=== PATIENT | female | born 1950 | race Caucasian/White ===

== ENCOUNTER 2019-05-13 20:57 | Inpatient (IN) | payer OTHER ==
--- NOTE | 2019-05-13 21:07 | PDOC ---
Rapid Medical Evaluation Time Seen by Provider: 05/13/19 21:05 Medical Evaluation: 05/13/19 21:06 HPI:Abdominal pain x 5 day PE: No gross deficits ORDERS: Belly labs and UA and Cx Discharge Disposition - Diagnosis Abdominal pain - Referrals - Patient Instructions - Post Discharge Activity
[2019-05-14 01:23] LABS: BASO % 0.4 % (0-2.0); EOS % 1.3 % (0-4.5); HEMATOCRIT 37.8 % (32.4-45.2); HEMOGLOBIN 12.9 GM/dL (10.7-15.3); LYMPH % 29.5 % (8-40); MCH 33.1 pg (25.7-33.7); MEAN CELL VOLUME 97.2 fl (80-96); MEAN PLT VOLUME 11.5 fl (7.5-11.1); MONO % 8.9 % (3.8-10.2); NEUT % 59.9 % (42.8-82.8); PLATELET COUNT 161 K/MM3 (134-434); RBC 3.89 M/mm3 (3.60-5.2); WHITE BLOOD COUNT 5.7 K/mm3 (4.0-10.0)
[2019-05-14 02:06] LABS: BILIRUBIN,TOTAL 4.9 mg/dL (0.2-1); BLOOD UREA NITROGEN 6.9 mg/dL (7-18); CALCIUM 8.5 mg/dL (8.5-10.1); CREATININE 0.5 mg/dL (0.55-1.3); POTASSIUM 3.8 mmol/L (3.5-5.1); TOT PROT 6.4 g/dl (6.4-8.2)
[2019-05-14] MEDS ORDERED: ONDANSETRON 4 MG/2 ML VIAL IVPB ONE (02:06)
[2019-05-14] MEDS ORDERED: FAMOTIDINE 20 MG/50 ML IVPB 20 MG/50 ML MG IVPB ONE (02:06)
[2019-05-14] MEDS ORDERED: LACTATED RINGERS SOLUTION 1000 ML INFUS.BAG IV ONE (02:06)
[2019-05-14] MEDS ORDERED: ONDANSETRON 4 MG/2 ML VIAL ONE (02:14)
--- NOTE | 2019-05-14 02:29 | PDOC ---
History of Present Illness - General Chief Complaint: Pain Stated Complaint: ABD PAIN Time Seen by Provider: 05/13/19 21:05 History Source: Patient, Friend (Friend at bedside for interview.), Social Media Community Manager Used ([employer] # [id number]) Exam Limitations: Language Barrier (Haitian speaking only) - History of Present Illness Initial Comments: HPI: 68 y/o female presenting to [facility] ER complaining of two weeks of burning upper abdominal pain and nausea with poor PO intake. Pt is concerned the symptoms are because of a kidney stone, which was found on an abd U/S in [facility] in December. Pt then endorsed lower abdominal pain with radiation to R and L lower back. Endorsed decreased urination with hematuria and/or dark urine. Denies vomiting or diarrhea. Of note, the pt was diagnosed with hepatitis A in December 2018 at [facility]. Denies persistent nausea/vomiting or abd since that time. Returned home to [facility] because she thought she was going to . This was when the U/S was obtained. She returned from [facility] also in December. Medical Hx: - S/p removal of ovaries but unable to reason or further details - Denies taking prescription medications - Takes Vit. B Complex daily. Review of Systems: In addition to that documented in the HPI above, the additional ROS was obtained : Constitutional: Denies fevers or chills Head: Denies vision changes ENMT: Denies sore throat CV: Denies chest pain Resp: Denies SOB GI: Denies vomiting or diarrhea : Per HPI. Denies dysuria. MSK: Denies recent trauma Skin: Denies new rashes Neuro: Denies new numbness or tingling or weakness Endocrine: Denies polyuria Heme: Denies bleeding or bruising Physical Examination: Constitutional: Well-developed, well-nourished elderly adult female in no acute distress or obvious discomfort. Obese body habitus. Found semi-fowlers on hospital bed. Alert and oriented x4. Speech was non-labored, non-pressured. Head: Normocephalic. No obvious external signs of trauma. Eyes: Sclera mildly icteric. Cardiovascular / Chest: Regular rate and regular rhythm. No murmur, rubs, clicks , or gallops. Peripheral pulses: radial pulses full. No pretibial edema. Respiratory: Breathing unlabored. Equal chest rise and fall. Clear to auscultation bilaterally. No stridor, no wheezing, no rhonchi. Gastrointestinal: abdomen is diffusely tender with grimace but no pause in talking, rebound, or guarding. Globally, abd is soft and non-distended.No pulsatile masses. No overlying skin lesions or obvious signs of trauma. Neuro: Alert and oriented. Moving all four extremities spontaneously. Skin: Warm, dry, and intact. : No R or L CVA tenderness. Psych: Affect: appropriate. Mood: normal. MDM: *Reviewed vital signs, nursing notes, and prior visit documentation (if available). 68 y/o female presenting with sharp and diffuse abdominal pain and nausea x2 weeks. Afebrile. Vitals unremarkable for hypotension or tachycardia. Physical exam as described above. CBC unremarkable for leukocytosis. CMP revealed elevated LFTs. Ordered non-con CTAP to eval for possible nephrolithiasis versus cholecystitis. Ordered Shay and Famotidine for symptom relief. CT scan concerning for possible cholecystitis. Unable to obtain U/S at this hour. Ordered placed for morning scan. Pt made NPO. Ordered Unasyn for abx coverage and LR maintenance fluids. 04:51 In person discussion with [facility] attending Dr. Meehan. Verbally appraised of the pts HPI, ED course, and current plan of management. Will admit pt to med/surg. Requested consult to be placed for Dr. Sheehan for surgical evaluation. Alo Harrison M.D., PGY2 Emergency Medicine Resident Past History - Past Medical History Allergies/Adverse Reactions: Allergies Allergy/AdvReac Type Severity Reaction Status Date / Time No Known Allergies Allergy Verified 05/14/19 03:17 Home Medications: Ambulatory Orders Vitamin B Complex 1 each PO DAILY 05/14/19 COPD: No CHF: No GI Disorders: Yes (gallbladder dx, Hepatitis A December 2018) - Suicide/Smoking/Psychosocial Hx Smoking History: Never smoked *Physical Exam - Vital Signs Last Vital Signs Temp Pulse Resp BP Pulse Ox 98.3 F 66 20 140/67 99 05/13/19 21:06 05/13/19 21:06 05/13/19 21:06 05/13/19 21:06 05/13/19 21:06 ED Treatment Course - LABORATORY CBC & Chemistry Diagram: 05/14/19 00:51 05/14/19 00:51 - ADDITIONAL ORDERS Additional order review: Laboratory Results 05/14/19 05/14/19 00:51 00:51 Sodium 140 Potassium 3.8 Chloride 105 Carbon Dioxide 28 Anion Gap 7 L BUN 6.9 L Creatinine 0.5 L Est GFR (CKD-EPI)AfAm 114.45 Est GFR (CKD-EPI)NonAf 98.75 Random Glucose 71 L Calcium 8.5 Total Bilirubin 4.9 H AST 143 H ALT 112 H Alkaline Phosphatase 262 H Total Protein 6.4 Albumin 3.0 L Lipase 90 05/14/19 00:51 RBC 3.89 MCV 97.2 H MCHC 34.0 RDW 14.0 MPV 11.5 H Neutrophils % 59.9 Lymphocytes % 29.5 Monocytes % 8.9 Eosinophils % 1.3 Basophils % 0.4 - RADIOLOGY Radiology Studies Ordered: Category Date Time Status ABDOMEN & PELVIS CT W/O CONTR [CT] Stat CT Scan 05/14/19 02:27 Ordered Radiograph Interpretation: CTAP w/o contrast: THIS IS A PRELIMINARY REPORT FROM [facility]AGING [facility] AUTHORIZER DATE OF SERVICE: 2019-05-14 02:39:33 IMAGES: [id number] EXAM: ABDOMEN \T\ PELVIS CT W/O CONTR HISTORY: Diffuse abdominal pain with elevated LFTs. COMPARISON: None. FINDINGS: Lung bases are clear. The visualized cardiac chambers are normal size and configuration. Gallbladder is distended and may be mildly inflamed and there is mild biliary duct dilation. Cholecystitis is suspected which can be confirmed with ultrasound. Normal unenhanced pancreas, spleen, adrenal glands and kidneys. The stomach and abdominal small and large bowel are normal. There is no aortic aneurysm. There is no significant retroperitoneal lymphadenopathy. The pelvic small and large bowel are normal. The appendix is normal. The uterus and adnexal structures are normal. Urinary bladder is unremarkable. There is no pelvic free fluid. No discrete pelvic lymphadenopathy is identified. IMPRESSION: Suspected cholecystitis of knowledge of biliary duct dilation which may be confirmed with ultrasound as clinically indicated. One or more of the following dose reduction techniques were used: automated exposure control, adjustment of the mA and/or kV according to patient size, use of iterative reconstructive technique. THIS DOCUMENT HAS BEEN ELECTRONICALLY SIGNED David Mahoney MD 05/14/2019 03:26 EST *DC/Admit/Observation/Transfer Diagnosis at time of Disposition: Cholecystitis Abdominal pain Qualifiers: Abdominal location: generalized Qualified Code(s): R10.84 - Generalized abdominal pain - Discharge Dispostion Condition at time of disposition: Stable Decision to Admit order: Yes - Referrals - Patient Instructions - Post Discharge Activity
[2019-05-14 03:07] LABS: EPI CELLS 0.3 /HPF (0-5/HPF); HYALINE CASTS 1 /lpf (0-8); PH,URINE 6.5 (5.0-8.0); URINE APPEARANCE Error; URINE BACTERIA 1.4 /hpf (NEGATIVE); URINE BILIRUBIN 2+ (NEGATIVE); URINE COLOR DK YELLOW; URINE GLUCOSE (UA) NEGATIVE (NEGATIVE); URINE KETONE 1+ (NEGATIVE); URINE LEUK ESTERASE TRACE (NEGATIVE); URINE NITRITE NEGATIVE (NEGATIVE); URINE PROTEIN NEGATIVE (NEGATIVE); URINE RBC 1 /hpf (0-4); URINE WBC 1 /hpf (0-5)
[2019-05-14] MEDS ORDERED: AMPICILLIN NA/SULBACTAM NA 3 GM in SODIUM CHLORIDE 100 ML IVPB ONE (04:33)
[2019-05-14] MEDS ORDERED: LACTATED RINGERS SOLUTION 1,000 ML/1,000 ML INFUS.BAG IV SCH ×2 (04:45→19:30)
--- NOTE | 2019-05-14 04:57 | PDOC ---
Attending Attestation - Resident Resident Name: Alo Harrison - ED Attending Attestation I have performed the following: I have examined & evaluated the patient, The case was reviewed & discussed with the resident, I agree w/resident's findings & plan - HPI HPI: 05/14/19 04:55 68-year-old female with upper abdominal pain. Patient has history of hepatitis A and possibly gallbladder disease. - Physicial Exam PE: 05/14/19 04:56 agree with resident exam - Medical Decision Making 05/14/19 04:56 68-year-old female with upper abdominal pain CT scan findings consistent with acute cholecystitis IV antibiotic, Unasyn administered in the emergency department Patient to be a to medical service with surgical consult
[2019-05-14] MEDS ORDERED: ONDANSETRON 4 MG/2 ML VIAL IVPUSH PRN ×2 (05:27→19:10)
[2019-05-14] MEDS ORDERED: LACTATED RINGERS SOLUTION 1,000 ML IV SCH ×2 (05:30→19:15)
--- NOTE | 2019-05-14 05:45 | HP ---
CHIEF COMPLAINT: RUQ pain PCP: [address] [place] [address] physician HISTORY OF PRESENT ILLNESS: Patient is a 68 y/o female with no past medical history who presents for RUQ pain. Two weeks ago patient was in [facility] visiting when she had an "Echo" done which showed a stone in her gallbladder. Since then she has had recurrent pain. She states today the pain started radiating to her back and that is when she decided to come into the hospital. She reports she hasn't been able to eat because of the pain and can only drink water. She has not tried to take any medication. She reports not having this pain in the past. She has not noted having pain with eating greasy or fatty food in the past. Patient reports she was told that she had Hepatitis A and she had an infection in her liver. She only takes complex B vitamins and no other medications. Patient has nausea. Denies fever, chills, diarrhea, chest pain, shortness of breath and headaches. Loading Unit Tool Setter [id number] used during interview. ER course was notable for: (1)CT (2)Unasyn (3) LR Recent Travel: [facility] 2 weeks ago PAST MEDICAL HISTORY: none PAST SURGICAL HISTORY: removal of cyst on ovary 45 years ago Social History: Smoking: denies Alcohol: denies Drugs: denies Family History: Father had high blood pressure Allergies No Known Allergies Allergy (Verified 05/14/19 03:17) HOME MEDICATIONS: Home Medications Medication Instructions Recorded Vitamin B Complex 1 each PO DAILY 05/14/19 REVIEW OF SYSTEMS CONSTITUTIONAL: loss of appetite Absent: fever, chills, diaphoresis, generalized weakness, malaise, , weight change HEENT: Absent: rhinorrhea, nasal congestion, throat pain, throat swelling, difficulty swallowing, mouth swelling, ear pain, eye pain, visual changes CARDIOVASCULAR: Absent: chest pain, syncope, palpitations, irregular heart rate, lightheadedness , peripheral edema RESPIRATORY: Absent: cough, shortness of breath, dyspnea with exertion, orthopnea, wheezing, stridor, hemoptysis GASTROINTESTINAL:abdominal pain Absent: , abdominal distension, nausea, vomiting, diarrhea, constipation, melena , hematochezia GENITOURINARY: Absent: dysuria, frequency, urgency, hesitancy, hematuria, flank pain, genital pain MUSCULOSKELETAL: Absent: myalgia, arthralgia, joint swelling, back pain, neck pain SKIN: Absent: rash, itching, pallor HEMATOLOGIC/IMMUNOLOGIC: Absent: easy bleeding, easy bruising, lymphadenopathy, frequent infections ENDOCRINE: Absent: unexplained weight gain, unexplained weight loss, heat intolerance, cold intolerance NEUROLOGIC: Absent: headache, focal weakness or paresthesias, dizziness, unsteady gait, seizure, mental status changes, bladder or bowel incontinence PSYCHIATRIC: Absent: anxiety, depression, suicidal or homicidal ideation, hallucinations. PHYSICAL EXAMINATION Vital Signs - 24 hr 05/13/19 05/14/19 21:06 05:26 Temperature 98.3 F Pulse Rate 66 Respiratory 20 Rate Blood Pressure 140/67 O2 Sat by Pulse 99 99 Oximetry (%) GENERAL: Awake, alert, and fully oriented, in no acute distress. HEAD: Normal with no signs of trauma. EYES: Pupils equal, round and reactive to light, extraocular movements intact, EARS, NOSE, THROAT: Moist mucous membranes. LUNGS: Breath sounds equal, clear to auscultation bilaterally. No wheezes, and no crackles. No accessory muscle use. HEART: Regular rate and rhythm, normal S1 and S2 without murmur, rub or gallop. ABDOMEN: soft, non distended, negative rosvings, negative McBurney's point, normoactive bowel sounds MUSCULOSKELETAL: Normal range of motion at all joints. LOWER EXTREMITIES: 2+ pulses, warm, well-perfused. No calf tenderness. No peripheral edema. SKIN: Warm, dry, normal turgor, no rashes or lesions noted, normal capillary refill. CBC/ CMP WBC 5.7 K/mm3 (4.0-10.0) 05/14/19 00:51 RBC 3.89 M/mm3 (3.60-5.2) 05/14/19 00:51 Hgb 12.9 GM/dL (10.7-15.3) 05/14/19 00:51 Hct 37.8 % (32.4-45.2) 05/14/19 00:51 MCV 97.2 fl (80-96) H 05/14/19 00:51 MCH 33.1 pg (25.7-33.7) 05/14/19 00:51 MCHC 34.0 g/dl (32.0-36.0) 05/14/19 00:51 RDW 14.0 % (11.6-15.6) 05/14/19 00:51 Plt Count 161 K/MM3 (134-434) 05/14/19 00:51 MPV 11.5 fl (7.5-11.1) H 05/14/19 00:51 Absolute Neuts (auto) 3.4 K/mm3 (1.5-8.0) 05/14/19 00:51 Neutrophils % 59.9 % (42.8-82.8) 05/14/19 00:51 Lymphocytes % 29.5 % (8-40) 05/14/19 00:51 Monocytes % 8.9 % (3.8-10.2) 05/14/19 00:51 Eosinophils % 1.3 % (0-4.5) 05/14/19 00:51 Basophils % 0.4 % (0-2.0) 05/14/19 00:51 Nucleated RBC % 0 % (0-0) 05/14/19 00:51 Sodium 140 mmol/L (136-145) 05/14/19 00:51 Potassium 3.8 mmol/L (3.5-5.1) 05/14/19 00:51 Chloride 105 mmol/L (98-107) 05/14/19 00:51 Carbon Dioxide 28 mmol/L (21-32) 05/14/19 00:51 Anion Gap 7 MMOL/L (8-16) L 05/14/19 00:51 BUN 6.9 mg/dL (7-18) L 05/14/19 00:51 Creatinine 0.5 mg/dL (0.55-1.3) L 05/14/19 00:51 Est GFR (CKD-EPI)AfAm 114.45 05/14/19 00:51 Est GFR (CKD-EPI)NonAf 98.75 05/14/19 00:51 Random Glucose 71 mg/dL (74-106) L 05/14/19 00:51 Calcium 8.5 mg/dL (8.5-10.1) 05/14/19 00:51 Total Bilirubin 4.9 mg/dL (0.2-1) H 05/14/19 00:51 AST 143 U/L (15-37) H 05/14/19 00:51 ALT 112 U/L (13-61) H 05/14/19 00:51 Alkaline Phosphatase 262 U/L (45-117) H 05/14/19 00:51 Creatine Kinase 189 U/L (26-192) 05/14/19 01:15 Creatine Kinase Index 1.4 % (0.0-5.0) 05/14/19 01:15 CK-MB (CK-2) 2.8 ng/mL (0.5-3.6) 05/14/19 01:15 Troponin I < 0.02 ng/ml (0.00-0.05) 05/14/19 01:15 Total Protein 6.4 g/dl (6.4-8.2) 05/14/19 00:51 Albumin 3.0 g/dl (3.4-5.0) L 05/14/19 00:51 Lipase 90 U/L (73-393) 05/14/19 00:51 Active Medications Lactated Ringer's (Lactated Ringers Solution) 1,000 ml in 1,000 mls @ 100 mls/ hr IV ASDIR CANDI Ampicillin Sodium/Sulbactam (Sodium 3 gm/ Sodium Chloride) 100 mls @ 200 mls/ hr IVPB Q6H-IV CANDI Lactated Ringer's (Lactated Ringers Solution) 1,000 mls @ 100 mls/hr IV ASDIR CANDI Ondansetron HCl (Zofran Injection) 4 mg IVPUSH Q6H PRN PRN Reason: NAUSEA EKG: sinus bradycardia, V1, V2 t wave inversions, no st changes ASSESSMENT/PLAN: Patient is a 68 y/o female with no past medical history who presents for RUQ pain. #RUQ - suspect cholecystitis - ABD CT: suspected cholecystitis of knowledge of biliary duct dilitation - f/u RUQ US - Dr Sheehan consulted - Unasyn q6h - zofran 4 mg q6h prn, QTC 406 - pain resolved with zofran and famotidine - low risk patient for surgery, NPO - UA negative for infxn, f/u UCX #transaminitis - cannot r/u in the setting of cholelithiasis - continue to monitor AST/ALT 143/112 - elevated alk phosp 262 #DVT ppx - SCD's - medication held for possible surgery FEN - NPO - LR @ 100 Dispo: monitor patient on med surg, f/u per Surgery Visit type - Emergency Visit Emergency Visit: Yes ED Registration Date: 05/14/19 Care time: The patient presented to the Emergency Department on the above date and was hospitalized for further evaluation of their emergent condition. - New Patient This patient is new to me today: Yes Date on this admission: 05/16/19 - Critical Care Critical Care patient: No ATTENDING PHYSICIAN STATEMENT I saw and evaluated the patient. I reviewed the resident's note and discussed the case with the resident. I agree with the resident's findings and plan as documented. SUBJECTIVE: OBJECTIVE: ASSESSMENT AND PLAN:
--- NOTE | 2019-05-14 07:17 | PN ---
Physical Exam: SUBJECTIVE: Patient seen and examined by the bedside, AOx3, in no acute distress. OBJECTIVE: Vital Signs Period Temp Pulse Resp BP Sys/Whitaker Pulse Ox Last 24 Hr 97.7 F-98.3 F 57-66 18-20 117-140/43-67 97-99 GENERAL: The patient is awake, alert, and fully oriented, in no acute distress. HEAD: Normal with no signs of trauma. EYES: PERRL, extraocular movements intact, sclera anicteric, conjunctiva clear. No ptosis. ENT: Ears normal, nares patent, oropharynx clear without exudates, moist mucous membranes. NECK: Trachea midline, full range of motion, supple. LUNGS: Breath sounds equal, clear to auscultation bilaterally, no wheezes, no crackles, no accessory muscle use. HEART: Regular rate and rhythm, S1, S2 without murmur, rub or gallop. ABDOMEN: Soft, diffusely tender EXTREMITIES: 2+ pulses, warm, well-perfused, no edema. NEUROLOGICAL: Cranial nerves II through XII grossly intact. Normal speech, gait not observed. PSYCH: Normal mood, normal affect. SKIN: Warm, dry, normal turgor, no rashes or lesions noted Laboratory Results - last 24 hr 05/14/19 05/14/19 05/14/19 00:51 00:51 00:51 WBC 5.7 RBC 3.89 Hgb 12.9 Hct 37.8 MCV 97.2 H MCH 33.1 MCHC 34.0 RDW 14.0 Plt Count 161 MPV 11.5 H Absolute Neuts (auto) 3.4 Neutrophils % 59.9 Lymphocytes % 29.5 Monocytes % 8.9 Eosinophils % 1.3 Basophils % 0.4 Nucleated RBC % 0 Sodium 140 Potassium 3.8 Chloride 105 Carbon Dioxide 28 Anion Gap 7 L BUN 6.9 L Creatinine 0.5 L Est GFR (CKD-EPI)AfAm 114.45 Est GFR (CKD-EPI)NonAf 98.75 Random Glucose 71 L Calcium 8.5 Total Bilirubin 4.9 H AST 143 H ALT 112 H Alkaline Phosphatase 262 H Creatine Kinase Creatine Kinase Index CK-MB (CK-2) Troponin I Total Protein 6.4 Albumin 3.0 L Lipase 90 Urine Color Urine Appearance Urine pH Ur Specific Gaylord Urine Protein Urine Glucose (UA) Urine Ketones Urine Blood Urine Nitrite Urine Bilirubin Urine Urobilinogen Ur Leukocyte Esterase Urine WBC (Auto) Urine RBC (Auto) Urine Casts (Auto) U Epithel Cells (Auto) Urine Bacteria (Auto) 05/14/19 05/14/19 01:15 02:35 WBC RBC Hgb Hct MCV MCH MCHC RDW Plt Count MPV Absolute Neuts (auto) Neutrophils % Lymphocytes % Monocytes % Eosinophils % Basophils % Nucleated RBC % Sodium Potassium Chloride Carbon Dioxide Anion Gap BUN Creatinine Est GFR (CKD-EPI)AfAm Est GFR (CKD-EPI)NonAf Random Glucose Calcium Total Bilirubin AST ALT Alkaline Phosphatase Creatine Kinase 189 Creatine Kinase Index 1.4 CK-MB (CK-2) 2.8 Troponin I < 0.02 Total Protein Albumin Lipase Urine Color Dk yellow Urine Appearance Error Urine pH 6.5 Ur Specific Gaylord 1.009 L Urine Protein Negative Urine Glucose (UA) Negative Urine Ketones 1+ H Urine Blood Negative Urine Nitrite Negative Urine Bilirubin 2+ H Urine Urobilinogen 2.0 H Ur Leukocyte Esterase Trace Urine WBC (Auto) 1 Urine RBC (Auto) 1 Urine Casts (Auto) 1 U Epithel Cells (Auto) 0.3 Urine Bacteria (Auto) 1.4 Active Medications Generic Name Dose Route Start Last Admin Trade Name Freq PRN Reason Stop Dose Admin Lactated Ringer's 1,000 ml in 1,000 mls @ 100 mls/hr 05/14/19 04:45 05/14/19 05:46 Lactated Ringers Solution IV 100 mls/hr ASDIR CANDI Administration Ampicillin Sodium/Sulbactam 100 mls @ 200 mls/hr 05/14/19 09:00 Sodium 3 gm/ Sodium Chloride IVPB Q6H-IV CANDI Lactated Ringer's 1,000 mls @ 100 mls/hr 05/14/19 05:30 05/14/19 06:49 Lactated Ringers Solution IV 100 mls/hr ASDIR CANDI Administration Ondansetron HCl 4 mg 05/14/19 05:27 Zofran Injection IVPUSH Q6H PRN NAUSEA ASSESSMENT/PLAN: Patient is a 68 yo female with no significant PMH, presented to the ER for RUQ pain for the past 2 weeks. Reportedly had an "Echo" done in [facility] 2 weeks ago which showed a stones in gallbladder. Pain started radiating to her back before she came into the ER. Associated with nausea and loss of appetite, exacerbated by eating greasy food, no vomiting, fever, chills, diarrhea, chest pain, shortness of breath and headaches. ER course: (1) CT: suspected cholecystitis (2) Unasyn (3) R/L Recent Travel: [place] 2 weeks ago PAST SURGICAL HISTORY: removal of cyst on ovary 45 years ago Social History: Family History: Father had high blood pressure #RUQ - RUQ US: Gallstone with wall thickening; mild to moderate dilation of central intrahepatic bile ducts with dilated common bileduct - ABD CT: suspected cholecystitis of knowledge of biliary duct dilitation - GI consulted, ERCP scheduled for tomorrow - Surgery (Dr Sheehan) consulted - Zosyn started - zofran and famotidine for pain - UA: Ketones 1+ Bili 2+ Urobilinogen 2.0 - Total Bili 5.5 #transaminitis - [id number]->127; [id number] ->98; [id number]->228 - continue to monitor #DVT ppx - SCD's - medication held for possible surgery #FEN - NPO - LR @ 100 #Dispo - Monitor on med surg - f/u per Surgery after ERCP Visit type - Emergency Visit Emergency Visit: Yes ED Registration Date: 05/14/19 Care time: The patient presented to the Emergency Department on the above date and was hospitalized for further evaluation of their emergent condition. - New Patient This patient is new to me today: No - Critical Care Critical Care patient: No - Discharge Referral Referred to [facility] Med [facility].C[facility] No ATTENDING PHYSICIAN STATEMENT I saw and evaluated the patient. I reviewed the resident's note and discussed the case with the resident. I agree with the resident's findings and plan as documented. SUBJECTIVE: OBJECTIVE: ASSESSMENT AND PLAN:
[2019-05-14 08:04] LABS: BASO % 0.6 % (0-2.0); EOS % 1.3 % (0-4.5); HEMATOCRIT 34.9 % (32.4-45.2); LYMPH % 25.5 % (8-40); MCHC 34.2 g/dl (32.0-36.0); MEAN CELL VOLUME 96.4 fl (80-96); MEAN PLT VOLUME 10.6 fl (7.5-11.1); MONO % 8.3 % (3.8-10.2); NEUT % 64.3 % (42.8-82.8); PLATELET COUNT 142 K/MM3 (134-434); RBC 3.62 M/mm3 (3.60-5.2); RDW 13.6 % (11.6-15.6); WHITE BLOOD COUNT 4.3 K/mm3 (4.0-10.0)
--- NOTE | 2019-05-14 08:17 | PN ---
Teaching Attending Note Name of Resident: Elfego Cruz ATTENDING PHYSICIAN STATEMENT I saw and evaluated the patient. I reviewed the resident's note and discussed the case with the resident. I agree with the resident's findings and plan as documented. SUBJECTIVE: C/o RT UQ pain OBJECTIVE: Vital Signs Temperature 97.7 F 05/14/19 07:00 Pulse Rate 57 L 05/14/19 07:00 Respiratory Rate 18 05/14/19 07:00 Blood Pressure 117/43 L 05/14/19 07:00 O2 Sat by Pulse Oximetry (%) 97 05/14/19 07:00 Elderly man no acute distress HEENT: mm moist, no anemia, PERRLA EOMI NECK: No JVd No Bruit CHEST: CTA B/L CVS: S1S2 R ABD: No distention Rt UQ OPain EXT: no edema feet, no calf tenderness, Puilses + BUSINESS INTELLIGENCE REPORTING ANALYST: AOX3 non focal CBC,CMP WBC 4.3 K/mm3 (4.0-10.0) 05/14/19 07:43 RBC 3.62 M/mm3 (3.60-5.2) 05/14/19 07:43 Hgb 12.0 GM/dL (10.7-15.3) 05/14/19 07:43 Hct 34.9 % (32.4-45.2) 05/14/19 07:43 MCV 96.4 fl (80-96) H 05/14/19 07:43 MCH 33.0 pg (25.7-33.7) 05/14/19 07:43 MCHC 34.2 g/dl (32.0-36.0) 05/14/19 07:43 RDW 13.6 % (11.6-15.6) 05/14/19 07:43 Plt Count 142 K/MM3 (134-434) 05/14/19 07:43 MPV 10.6 fl (7.5-11.1) 05/14/19 07:43 Absolute Neuts (auto) 2.8 K/mm3 (1.5-8.0) 05/14/19 07:43 Neutrophils % 64.3 % (42.8-82.8) 05/14/19 07:43 Lymphocytes % 25.5 % (8-40) 05/14/19 07:43 Monocytes % 8.3 % (3.8-10.2) 05/14/19 07:43 Eosinophils % 1.3 % (0-4.5) 05/14/19 07:43 Basophils % 0.6 % (0-2.0) 05/14/19 07:43 Nucleated RBC % 0 % (0-0) 05/14/19 07:43 ESR 40 mm/hr (0-30) H 05/14/19 13:18 Sodium 143 mmol/L (136-145) 05/14/19 07:43 Potassium 3.4 mmol/L (3.5-5.1) L 05/14/19 07:43 Chloride 110 mmol/L (98-107) H 05/14/19 07:43 Carbon Dioxide 24 mmol/L (21-32) 05/14/19 07:43 Anion Gap 9 MMOL/L (8-16) 05/14/19 07:43 BUN 3.4 mg/dL (7-18) L 05/14/19 07:43 Creatinine 0.5 mg/dL (0.55-1.3) L 05/14/19 07:43 Est GFR (CKD-EPI)AfAm 114.45 05/14/19 07:43 Est GFR (CKD-EPI)NonAf 98.75 05/14/19 07:43 Random Glucose 71 mg/dL (74-106) L 05/14/19 07:43 Calcium 7.9 mg/dL (8.5-10.1) L 05/14/19 07:43 Iron 93 ug/dL (50-175) 05/14/19 13:18 TIBC 380 ug/dL (250-450) 05/14/19 13:18 Iron Saturation 24 % (17.5-39) 05/14/19 13:18 Unsaturated IBC 287 ug/dL (200-275) H 05/14/19 13:18 Total Bilirubin 5.5 mg/dL (0.2-1) H 05/14/19 07:43 Direct Bilirubin 5.5 mg/dL (0.0-0.2) H 05/14/19 13:18 AST 127 U/L (15-37) H 05/14/19 07:43 ALT 98 U/L (13-61) H 05/14/19 07:43 Alkaline Phosphatase 228 U/L (45-117) H 05/14/19 07:43 LD Total 248 U/L (84-246) H 05/14/19 13:18 Creatine Kinase 189 U/L (26-192) 05/14/19 01:15 Creatine Kinase Index 1.4 % (0.0-5.0) 05/14/19 01:15 CK-MB (CK-2) 2.8 ng/mL (0.5-3.6) 05/14/19 01:15 Troponin I < 0.02 ng/ml (0.00-0.05) 05/14/19 01:15 C-Reactive Protein 2.0 MG/DL (0.00-0.3) H 05/14/19 13:18 Total Protein 5.5 g/dl (6.4-8.2) L 05/14/19 07:43 Albumin 2.4 g/dl (3.4-5.0) L 05/14/19 07:43 Lipase 90 U/L (73-393) 05/14/19 00:51 RT UQ Ultrasound: CBD 10 mm with echogenic area, Distended thickened wall GB CT abd; Thickened GB Active Medications Lactated Ringer's (Lactated Ringers Solution) 1,000 ml in 1,000 mls @ 100 mls/ hr IV ASDIR CANDI Last Admin: 05/14/19 05:46 Dose: 100 mls/hr Ampicillin Sodium/Sulbactam (Sodium 3 gm/ Sodium Chloride) 100 mls @ 200 mls/ hr IVPB Q6H-IV CANDI Lactated Ringer's (Lactated Ringers Solution) 1,000 mls @ 100 mls/hr IV ASDIR CANDI Last Admin: 05/14/19 06:49 Dose: 100 mls/hr Ondansetron HCl (Zofran Injection) 4 mg IVPUSH Q6H PRN PRN Reason: NAUSEA ASSESSMENT AND PLAN:68 yrs old man from came 2 wks ago admitted with Rt UQ pain w Problem List - Problems (1) Obstructive jaundice Assessment/Plan: Due to CBD stone acute cholycystitis schedulefor ERCP and stent placement, NPO Pain control, IV Unasyn, GI and surgery consult is appreciated Code(s): K83.1 - OBSTRUCTION OF BILE DUCT (2) Cholecystitis Assessment/Plan: NPO, IV Hydration, pain control, IV Unsyn PRN, Surgery and GI consult cont Zofran PRN Code(s): K81.9 - CHOLECYSTITIS, UNSPECIFIED
[2019-05-14 08:30] LABS: ALBUMIN 2.4 g/dl (3.4-5.0); BILIRUBIN,TOTAL 5.5 mg/dL (0.2-1); BLOOD UREA NITROGEN 3.4 mg/dL (7-18); CALCIUM 7.9 mg/dL (8.5-10.1); CREATININE 0.5 mg/dL (0.55-1.3); POTASSIUM 3.4 mmol/L (3.5-5.1); TOT PROT 5.5 g/dl (6.4-8.2)
[2019-05-14 08:31] LABS: INR 1.34 (0.83-1.09); PROTHROMBIN TIME (PATIENT) 15.8 SEC (9.7-13.0)
[2019-05-14] MEDS ORDERED: AMPICILLIN NA/SULBACTAM NA 3 GM in SODIUM CHLORIDE 100 ML IVPB SCH (09:00)
--- NOTE | 2019-05-14 09:03 | PN ---
Teaching Attending Note Name of Resident: Maida Owens ATTENDING PHYSICIAN STATEMENT I saw and evaluated the patient. I reviewed the resident's note and discussed the case with the resident. I agree with the resident's findings and plan as documented. Seen and examined; please refer to resident note for further historical information. Briefly, this is a 68 y/o female with a PMH as documented presenting with abdominal pain with potentially obstructive pattern on LFTs; US not in house and is pending along with contrasted MRCP. Prelim CT reviewed; discussed below. Will require surgical evaluation with Dr. Sheehan and GI evaluation; appreciate subspecialty input. Lipase negative. Additional history per resident note. 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 10 sys ROS done and negative aside from HPI PMH, PSH, FH, SH reviewed Home Medications Medication Instructions Recorded Vitamin B Complex 1 each PO DAILY 05/14/19 VS, labs, imaging reviewed NAD, AAO, resting in bed NC AT EOMI PERRLA, slight icterus RRR s1/2 Tender, ND, reduced bowel sounds CN2-12 wnl, no fnd EKG not located; appears to have been done. Will review scanned version and update if issues. Prelim CT abdomen/pelvis shows suspected GB inflammation with suspected ductal dilation ASSESSMENT AND PLAN: Patient presents to the ER with abdominal pain; found to have likely biliary duct dilation and GB inflammation on prelim CT. US and MRCP w/ contrast pending ; consulting GI and General Sgy. High bili could be 2/2 HAV (ie cholestatic jaundice) vs. 2/2 obstructing process; supportive care, trending liver enzymes, followup GI recs. Empiric abx, IVF, NPO, trend LFTs, control pain. Will likely require procedure. Appreciate subspecialty input in the management of this patient. 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 Checking cholesterol as this can be high in acute infection; attempt to obtain records). No evidence for steroids; if hyperbilirubinemia persists beyond the resolution of the GB process can consider cholestyramine if pruritis is an issue. Monitor for relapsing infection.) # Macrocytosis without anemia -Checking B12, folate, iron # Hypoalbuminemia -Checking prealbumin Full Code
[2019-05-14] MEDS ORDERED: DEXTROSE 5%-LACTATED RINGERS 1,000 ML IV SCH (09:30)
[2019-05-14] MEDS ORDERED: HEPARIN NA (PORCINE) 5,000 UNITS/ML 1ML VIAL SQ SCH (10:00)
[2019-05-14] MEDS ORDERED: HEPARIN NA (PORCINE) 5,000 UNITS/ML 1ML VIAL ONE (10:04)
[2019-05-14] MEDS ORDERED: PIPERACILLIN/TAZOB 3.375 GM 3.375 GM/50 ML BAG IVPB ONE (10:05)
[2019-05-14] MEDS: PIPERACILLIN/TAZOB 3.375 GM 3.375 GM in DEXTROSE 5%-WATER - 50 ML IVPB SCH ×2 (10:10→19:01)
--- NOTE | 2019-05-14 11:25 | EKG ---
Test Reason : Blood Pressure : / mmHG Vent. Rate : 058 BPM Atrial Rate : 058 BPM P-R Int : 152 ms QRS Dur : 076 ms QT Int : 414 ms P-R-T Axes : 036 -07 020 degrees QTc Int : 406 ms SINUS BRADYCARDIA POSSIBLE ANTERIOR INFARCT , AGE UNDETERMINED ABNORMAL ECG NO PREVIOUS ECGS AVAILABLE Confirmed by Jeffry Rosas MD ([id number]) on 05/14/2019 11:25:03 AM Referred By: Confirmed By:Jeffry Rosas MD
[2019-05-14 11:41] VITALS: BMI 26.5
[2019-05-14 14:21] LABS: BILIRUBIN,DIRECT 5.5 mg/dL (0.0-0.2)
--- NOTE | 2019-05-14 14:50 | PN ---
Progress Note (short form) - Note Progress Note: BRIEF GI NOTE KEEP NPO / IVF'S C/W ABX PLAN FOR ERCP TODAY - WILL F/U WITH DR. MANUEL REGARDING EXACT TIMING OF THE PROCEDURE.
--- NOTE | 2019-05-14 15:23 | PN ---
Progress Note (short form) - Note Progress Note: Patient already seen by Dr. Day. consulted dictated. Case d/w Dr. Brady and given LFT abnormality, abnormal imaging (gallstones, dilated biliary tract) , plan for ERCP today. Discussed the plan with Ms. Gutierres via job lithographer [id number]. Discussed potential risks of the procedure like but not limited to bleeding, perforation requiring surgery to repair, infection, sedation medication effects all of which could be potentially life threatening. She has agreed to the procedure. Consent obtained, wittnessed by Ms Friedman' s nurse Maida.
--- NOTE | 2019-05-14 15:28 | CONSULT ---
- Consultation REQUESTING PROVIDER: CONSULT REQUEST: We have been asked to surgically evaluate this patient for cholecystitis PCP:Kevyn Alvarado MD HISTORY OF PRESENT ILLNESS: 68yo F presented to the ED with complaints of RUQ pain and n/v. Pt states that she has been having abd pain for the past 2 weeks. It sounds like she had an Ultrasound in [facility] and was told she had gallstones while she was there. Pt states that the pain and n/v has now subsided and that she feels much better, she states that she really hasn't had any appetite and is afraid to eat as the pain will come back. PMHx: Denies Home Medications Medication Instructions Recorded Meloxicam 1 tab PO DAILY 05/14/19 Omeprazole 20 mg PO DAILY 05/14/19 Vitamin B Complex 1 each PO DAILY 05/14/19 Allergies Allergy/AdvReac Type Severity Reaction Status Date / Time No Known Allergies Allergy Verified 05/14/19 03:17 PHYSICAL EXAM: GENERAL: Awake, alert, and fully oriented, in no acute distress. HEAD: Normal with no signs of trauma. EYES: PERRL, sclera anicteric, conjunctiva clear. LUNGS: breathing comfortably, No accessory muscle use. ABDOMEN: Soft, nontender, not distended, no guarding, no rebound, no masses. No organomegaly. LOWER EXTREMITIES: No peripheral edema. NEUROLOGICAL: Normal speech, gait not observed. PSYCH: Cooperative. Good eye contact. Appropriate mood and affect. SKIN: Warm, dry, normal turgor, no rashes or lesions noted. Vital Signs Temperature 98.4 F 05/14/19 11:18 Pulse Rate 50 L 05/14/19 11:18 Respiratory Rate 18 05/14/19 11:18 Blood Pressure 141/73 05/14/19 11:18 O2 Sat by Pulse Oximetry (%) 97 05/14/19 09:00 Lab Results WBC 4.3 K/mm3 (4.0-10.0) 05/14/19 07:43 RBC 3.62 M/mm3 (3.60-5.2) 05/14/19 07:43 Hgb 12.0 GM/dL (10.7-15.3) 05/14/19 07:43 Hct 34.9 % (32.4-45.2) 05/14/19 07:43 MCV 96.4 fl (80-96) H 05/14/19 07:43 MCHC 34.2 g/dl (32.0-36.0) 05/14/19 07:43 RDW 13.6 % (11.6-15.6) 05/14/19 07:43 Plt Count 142 K/MM3 (134-434) 05/14/19 07:43 Sodium 143 mmol/L (136-145) 05/14/19 07:43 Potassium 3.4 mmol/L (3.5-5.1) L 05/14/19 07:43 Chloride 110 mmol/L (98-107) H 05/14/19 07:43 Carbon Dioxide 24 mmol/L (21-32) 05/14/19 07:43 Anion Gap 9 MMOL/L (8-16) 05/14/19 07:43 BUN 3.4 mg/dL (7-18) L 05/14/19 07:43 Creatinine 0.5 mg/dL (0.55-1.3) L 05/14/19 07:43 Random Glucose 71 mg/dL (74-106) L 05/14/19 07:43 Calcium 7.9 mg/dL (8.5-10.1) L 05/14/19 07:43 Blood Type A POSITIVE 05/14/19 13:22 Antibody Screen Negative 05/14/19 07:43 INR 1.34 (0.83-1.09) H 05/14/19 07:43 RUQ US: Gallstones with wall thickening, can not rule out acute cholecystitis. Mild to moderate dilatation of central intrahepatic biliary ducts with a CBD measuring 10mms. DX: Cholecystitis Plan: -pt seen by GI and plan for ERCP today, will follow up results from the procedure -will plan for Lap cholecystectomy on 05/16/19 -trend LFTs -npo for now -will continue to follow. Pt was seen and discussed by Dr. Sheehan who agrees with plan
--- NOTE | 2019-05-14 15:54 | CONS ---
GASTROINTESTINAL CONSULTATION DATE OF CONSULTATION: DATE OF DICTATION: 05/14/2019 HISTORY OF PRESENT ILLNESS: The patient is a 68-year-old, female with no past medical history who complains of a band-like upper abdominal pain radiating to the right side of her upper abdomen which began 2 weeks ago while she was visiting [facility]. Apparently, she had an ultrasound done there which revealed a stone. Since then, she has had multiple episodes of recurrent stone pain prompting her to come to the emergency room for further evaluation. She states that when she eats, her pain worsens. She denies any history of liver disease, jaundice, new medications or herbal supplements. She states she may have been infected with hepatitis A in the past spring, but is not clear on that. She has never had an endoscopy or a colonoscopy in the past. She denies any blood in her stool, vomiting. Does admit to intermittent nausea. No hematemesis. No weight loss. No fevers or chills. PAST MEDICAL AND SURGICAL HISTORY: As listed in the HPI. ALLERGIES: No known drug allergies SOCIAL HISTORY: Does not drink, smoke or use drugs. FAMILY HISTORY: Significant for hypertension. No history of GI or gynecological malignancy. She is unclear if anyone else in her family suffered from biliary disease. HOME MEDICATIONS: Vitamin B. REVIEW OF SYSTEMS: As per the HPI. PHYSICAL EXAMINATION: Vital Signs: Temperature 98, pulse 50, blood pressure 140/73, pulse oximetry 97% on room air. General: In no acute distress. HEENT: Anicteric sclera. Cardiovascular: S1, S2. Regular rate and rhythm. Lungs: Bilaterally clear to auscultation. Abdomen: Tender in the right upper quadrant without rebound or guarding. Extremities: No edema. LABORATORIES: White blood cell count 4, hemoglobin 12 and hematocrit 34, MCV 96, platelet count 142. INR 1.34. Sodium 143, potassium 3.4, BUN 3.4, creatinine 0.5, glucose 71. Iron studies are pending. Total bilirubin is 5.5, AST 127, ALT 98, alkaline phosphatase 228, and the direct bilirubin is pending at this time. Amylase and lipase are within normal limits. Urine: Bilirubin 2+ and 2 urobilinogen. Serologies for hepatitis A, B and C are pending at this time. She had an abdomen and pelvis CT scan which revealed mild pericholecystic edema and questionable thickening and enhancement of its wall. Ultrasound was recommended. There were no gross gallstones identified. Questionable 3-mm nodule in the right lower lobe and a 3.5-mm pleural-based nodule in the left lower lobe which are nonspecific. Everything else remains unremarkable. She also had an ultrasound which revealed gallstones with wall thickening, acute cholecystitis cannot not be ruled out. Also, [id number] dilation of the central intrahepatic ducts and dilated common bile duct up to 10 mm. Stones cannot not be excluded. IMPRESSION: Transaminitis, right upper quadrant pain, and imaging findings of dilated biliary tree, choledocholithiasis cannot be excluded at this time, and acute cholecystitis. RECOMMENDATIONS: N.p.o. IV fluids. Will start her on antibiotics, Levaquin 500 mg IV daily, and Flagyl of 500 mg IV q.8 hours. Will order an MRCP to further evaluate the biliary tree. If positive, she will need an ERCP Surgery evaluation for potential cholecystectomy. Will follow. DO JAVIER CRUZ/[id number]
[2019-05-14] MEDS ORDERED: MIDAZOLAM HCL 2 MG/2 ML SINGLE DOSE VIAL ONE (17:17)
[2019-05-14] MEDS ORDERED: PIPERACILLIN/TAZOBACTAM 3.375 GM VIAL IVPB ONE (17:48)
[2019-05-14] MEDS ORDERED: DEXTROSE 5%-WATER - 50 ML IVPB ONE (17:49)
[2019-05-14] MEDS ORDERED: PROMETHAZINE HCL 25 MG/1 ML VIAL IVPUSH PRN (19:10)
--- NOTE | 2019-05-14 19:30 | PN ---
Progress Note (short form) - Note Progress Note: GI Procedure NOte: Please see ERCP report ( scanned and in chart): ERCP attempts to cannulate the bile duct were unsuccessful even after a needle knife sphincterotomy was performed. Dr Moscoso came to assist and also could not cannulate. I discussed the case with Dr Olmedo who is on standby to come in and perform an emergent PTC should cholangitis ensue. This is unlikely as the bile duct was not breached and there are no signs of sepsis at this point. Will pursue PTC in the morning. Will then need transfer to tertiary care center for definitive ERCP and stone extraction unless the PTC is able to do so. Will continue antibiotics and give Vitamin K. She will ultimately need a cholecystectomy. Current Active Problems Abdominal pain (Acute) Cholecystitis (Acute) Obstructive jaundice (Acute) Choledocholithiasis
[2019-05-14] MEDS ORDERED: PHYTONADIONE 10 MG/1 ML AMP IVPB ONE ×2 (19:35→23:00)
[2019-05-14] MEDS ORDERED: MORPHINE SULFATE 2 MG/ML VIAL IVPUSH ONE (21:37)
[2019-05-15] MEDS ORDERED: LACTATED RINGERS SOLUTION 1,000 ML/1,000 ML INFUS.BAG IV SCH (00:30)
[2019-05-15] MEDS ORDERED: PIPERACILLIN/TAZOBACTAM 3.375 GM VIAL IVPB ONE ×2 (01:22→09:25)
[2019-05-15] MEDS ORDERED: DEXTROSE 5%-WATER - 50 ML IVPB ONE ×2 (01:22→09:25)
[2019-05-15] MEDS: PIPERACILLIN/TAZOB 3.375 GM 3.375 GM in DEXTROSE 5%-WATER - 50 ML IVPB SCH (01:27)
[2019-05-15 09:02] LABS: INR 1.17 (0.83-1.09); PROTHROMBIN TIME (PATIENT) 13.8 SEC (9.7-13.0)
[2019-05-15 09:23] LABS: ALBUMIN 2.4 g/dl (3.4-5.0); BILIRUBIN,DIRECT 4.8 mg/dL (0.0-0.2); BILIRUBIN,TOTAL 5.9 mg/dL (0.2-1); BLOOD UREA NITROGEN 3.2 mg/dL (7-18); CALCIUM 8.6 mg/dL (8.5-10.1); CREATININE 0.6 mg/dL (0.55-1.3); POTASSIUM 3.6 mmol/L (3.5-5.1); TOT PROT 5.8 g/dl (6.4-8.2)
[2019-05-15 09:30] LABS: BASO % 0.1 % (0-2.0); EOS % 0.1 % (0-4.5); HEMATOCRIT 39.9 % (32.4-45.2); HEMOGLOBIN 13.5 GM/dL (10.7-15.3); LYMPH % 14.9 % (8-40); MCH 32.9 pg (25.7-33.7); MCHC 33.9 g/dl (32.0-36.0); MEAN CELL VOLUME 97.2 fl (80-96); MEAN PLT VOLUME 11.5 fl (7.5-11.1); MONO % 5.6 % (3.8-10.2); NEUT % 79.3 % (42.8-82.8); PLATELET COUNT 171 K/MM3 (134-434); RBC 4.11 M/mm3 (3.60-5.2); RDW 13.8 % (11.6-15.6); WHITE BLOOD COUNT 6.8 K/mm3 (4.0-10.0)
[2019-05-15] MEDS ORDERED: PIPERACILLIN/TAZOB 3.375 GM 3.375 GM in DEXTROSE 5%-WATER - 50 ML IVPB SCH (10:00)
--- NOTE | 2019-05-15 10:50 | PN.GI ---
GI Progress Note Subjective: Pt seen/examined at bedside, syriac phone pressure controller used. ERCP/ sphincterotomy yesterday with unsuccessful attempts at cannulation. Pt still with upper abdominal pain. Denies nausea/vomiting, fever/chills. - Objective Vital Signs: Vital Signs Temperature 98.0 F 05/15/19 05:54 Pulse Rate 53 L 05/15/19 05:54 Respiratory Rate 18 05/15/19 05:54 Blood Pressure 130/72 05/15/19 05:54 O2 Sat by Pulse Oximetry (%) 99 05/14/19 21:36 Constitutional: Well Nourished, No Distress, Calm Cardiovascular: Yes: WNL, Regular Rate and Rhythm Respiratory: Yes: WNL, CTA Bilaterally Gastrointestinal Inspection: Yes: WNL ...Palpate: Yes: Other (Abd soft, mildly tender in epigastrium and RUQ on palpation, no rebound, guarding or rigidity) Labs: CBC, BMP 05/15/19 08:24 05/15/19 08:24 INR, PTT INR 1.17 (0.83-1.09) H 05/15/19 08:24 Problem List - Problems (1) Dilation of biliary tract Assessment/Plan: 68yo female presenting with abdominal pain with US and CT imaging with gallstones and biliary dilation concerning for obstruction/CBD stones s/p ERCP yesterday with sphincterotomy revealing congested papilla however unable to cannulate. No features of cholangitis at this time. LFTs remain elevated. -Plan for PTC today with IR -Continue to closely monitor LFT trend -Continue IV zosyn -Further recommendations including possible need for transfer to tertiary center for possible repeat attempted ERCP pending above and response to PTC Code(s): K83.8 - OTHER SPECIFIED DISEASES OF BILIARY TRACT
--- NOTE | 2019-05-15 11:35 | PN ---
Progress Note (short form) - Note Progress Note: ID consult dictated imp/reccd 68 yo female admitted with RUQ pain and cholycystitis- noted to have choledocholithiasis ERCP unsuccessful no fevers no chills plan for PTC today per GI will continue zosyn further plans per GI and surgery Problem List - Problems (1) Choledocholithiasis Code(s): K80.50 - CALCULUS OF BILE DUCT W/O CHOLANGITIS OR CHOLECYST W/O OBST
[2019-05-15] MEDS: LACTATED RINGERS SOLUTION 1,000 ML/1,000 ML INFUS.BAG IV SCH (11:44)
[2019-05-15] MEDS ORDERED: PIPERACILLIN/TAZOBACTAM 4.5 GM VIAL IVPB ONE (17:05)
[2019-05-15] MEDS ORDERED: DEXTROSE 5%-WATER 100 ML IVPB ONE (17:05)
[2019-05-15] MEDS: PIPERACILLIN/TAZOB 4.5 GM 4.5 GM in DEXTROSE 5%-WATER 100 ML IVPB SCH ×2 (18:16→18:29)
--- NOTE | 2019-05-15 19:31 | CONS ---
DATE OF CONSULTATION: 05/14/2019 CONSULTATION REQUESTED BY: Hospitalist Service HISTORY OF PRESENT ILLNESS: The patient is a 68-year-old woman admitted with right upper quadrant pain and cholecystitis. She was noted to have choledocholithiasis. I am asked to see her for antibiotic recommendations. She went for an ERCP yesterday which was unsuccessful. She has had no fevers or chills but she does have pain. She also reports nausea with eating and pain that radiates to her back. She is being followed by gastroenterology with plan for a PTC today with future ERCP. She is currently n.p.o. PAST MEDICAL HISTORY: Unremarkable. PAST SURGICAL HISTORY: Notable for removal of a cyst from an ovary. SOCIAL HISTORY: There is no history of cigarette, alcohol or substance abuse. She was in [facility] recently when she started having these symptoms that showed she had gallstones. FAMILY HISTORY: Notable for hypertension in her father. ALLERGIES: No known drug allergies. HOME MEDICATIONS: She takes vitamin B complex. REVIEW OF SYSTEMS: Notable for pain with eating, nausea and loss of appetite. There are no fevers or chills. She has had no shortness of breath. She does note abdominal pain in her right upper quadrant as well as pain radiating to her back. PHYSICAL EXAMINATION: General: She is awake and alert. Vital Signs: Temperature is 97.8, pulse 58, blood pressure 131/71, respiratory rate 14, saturating at 97%. HEENT: Normocephalic. Her eyes are anicteric. Neck: Supple. Lungs: Clear to auscultation. Heart: Regular rate and rhythm. Abdomen: Soft. She had mid-epigastric tenderness and right upper quadrant discomfort to palpation. Extremities: No edema. LABORATORY DATA: White count is 6.8, hemoglobin 13.5, platelets 171. Her BUN and creatinine are 3.2 and 0.6. Her total bilirubin is 5.9 with an AST of 134, ALT of 112 and alkaline phosphatase of 230. Cultures are pending. IN SUMMARY: This is a 68-year-old woman with cholecystitis and choledocholithiasis with an unsuccessful ERCP. Plan for PTC today per GI. Will continue Zosyn. Further plans per GI and surgery. NELLY MATTA M.D. [id number] MTDD
--- NOTE | 2019-05-15 19:57 | PN ---
Teaching Attending Note Name of Resident: Keegan Alexis ATTENDING PHYSICIAN STATEMENT I saw and evaluated the patient. I reviewed the resident's note and discussed the case with the resident. I agree with the resident's findings and plan as documented. SUBJECTIVE: Patient is c/o having an abdominal diffuse tenderness luis RUq. OBJECTIVE: Vital Signs Temperature 97.6 F 05/15/19 17:00 Pulse Rate 66 05/15/19 17:00 Respiratory Rate 19 05/15/19 17:00 Blood Pressure 157/86 05/15/19 17:00 O2 Sat by Pulse Oximetry (%) 100 05/15/19 15:12 GENERAL: The patient is awake, alert, and fully oriented, in no acute distress. HEAD: Normal with no signs of trauma. EYES: PERRL, extraocular movements intact, sclera anicteric, conjunctiva clear. No ptosis. ENT: Ears normal, nares patent, oropharynx clear without exudates, moist mucous membranes. NECK: Trachea midline, full range of motion, supple. LUNGS: Breath sounds equal, clear to auscultation bilaterally, no wheezes, no crackles, no accessory muscle use. HEART: Regular rate and rhythm, S1, S2 without murmur, rub or gallop. ABDOMEN: Soft, diffuse RUQ pain , positive for voluntary guarding, no rebound, no hepatosplenomegaly, no masses. EXTREMITIES: 2+ pulses, warm, well-perfused, no edema. NEUROLOGICAL: Cranial nerves II through XII grossly intact. Normal speech, gait not observed. PSYCH: Normal mood, normal affect. SKIN: Warm, dry, normal turgor, no rashes or lesions WBC 6.8 K/mm3 (4.0-10.0) 05/15/19 08:24 RBC 4.11 M/mm3 (3.60-5.2) 05/15/19 08:24 Hgb 13.5 GM/dL (10.7-15.3) 05/15/19 08:24 Hct 39.9 % (32.4-45.2) 05/15/19 08:24 MCV 97.2 fl (80-96) H 05/15/19 08:24 MCHC 33.9 g/dl (32.0-36.0) 05/15/19 08:24 RDW 13.8 % (11.6-15.6) 05/15/19 08:24 Plt Count 171 K/MM3 (134-434) D 05/15/19 08:24 MPV 11.5 fl (7.5-11.1) H 05/15/19 08:24 CMP Sodium 142 mmol/L (136-145) 05/15/19 08:24 Potassium 3.6 mmol/L (3.5-5.1) 05/15/19 08:24 Chloride 107 mmol/L (98-107) 05/15/19 08:24 Carbon Dioxide 28 mmol/L (21-32) 05/15/19 08:24 Anion Gap 7 MMOL/L (8-16) L 05/15/19 08:24 BUN 3.2 mg/dL (7-18) L 05/15/19 08:24 Creatinine 0.6 mg/dL (0.55-1.3) 05/15/19 08:24 Random Glucose 98 mg/dL (74-106) 05/15/19 08:24 Calcium 8.6 mg/dL (8.5-10.1) 05/15/19 08:24 Total Bilirubin 5.9 mg/dL (0.2-1) H 05/15/19 08:24 AST 134 U/L (15-37) H 05/15/19 08:24 ALT 112 U/L (13-61) H 05/15/19 08:24 Alkaline Phosphatase 230 U/L (45-117) H 05/15/19 08:24 Total Protein 5.8 g/dl (6.4-8.2) L 05/15/19 08:24 Albumin 2.4 g/dl (3.4-5.0) L 05/15/19 08:24 CARDIAC ENZYMES Creatine Kinase 189 U/L (26-192) 05/14/19 01:15 Troponin I < 0.02 ng/ml (0.00-0.05) 05/14/19 01:15 Current Medications Generic Name Dose Route Start Last Admin Trade Name Freq PRN Reason Stop Dose Admin Lactated Ringer's 1,000 ml in 1,000 mls @ 125 mls/hr 05/15/19 07:30 05/15/19 11:44 Lactated Ringers Solution IV 125 mls/hr ASDIR CANDI Administration Piperacillin Sod/Tazobactam 100 mls @ 200 mls/hr 05/15/19 18:00 05/15/19 18: 29 Sod 4.5 gm/ Dextrose IVPB 200 mls/hr Q8H-IV CANDI Administration Protocol Home Medications Medication Instructions Recorded Meloxicam 1 tab PO DAILY 05/14/19 Omeprazole 20 mg PO DAILY 05/14/19 Vitamin B Complex 1 each PO DAILY 05/14/19 ASSESSMENT AND PLAN: Patient is a 68 yo female with no significant PMH, presented to the ER for RUQ pain x 2 weeks. and was found to have Acute Choledocholithiasis . #Acute choldecholithiasis ; s/p ERCP unsuccessful , going to have the procedure (Percutaneous Trans Cholangiography (PTC) By IR , will monitor , GI on the case # Acute Transaminitis: continue to monitor - #DVT ppx: SCD's
[2019-05-15] MEDS ORDERED: ONDANSETRON *ODT* 4 MG TABLET SL ONE (21:22)
--- NOTE | 2019-05-15 21:28 | PN ---
Physical Exam: SUBJECTIVE: Patient seen and examined by the bedside, in no acute distress. AOx3 OBJECTIVE: Vital Signs Period Temp Pulse Resp BP Sys/Whitaker Pulse Ox Last 24 Hr 97.6 F-98.5 F 52-66 14-20 128-157/68-86 95-100 GENERAL: The patient is awake, alert, and fully oriented, in no acute distress. HEAD: Normal with no signs of trauma. EYES: PERRL, extraocular movements intact, sclera anicteric, conjunctiva clear. No ptosis. ENT: Ears normal, nares patent, oropharynx clear without exudates, moist mucous membranes. NECK: Trachea midline, full range of motion, supple. LUNGS: Breath sounds equal, clear to auscultation bilaterally, no wheezes, no crackles, no accessory muscle use. HEART: Regular rate and rhythm, S1, S2 without murmur, rub or gallop. ABDOMEN: Soft, diffusely tender, no rebound tenderness, no hepatosplenomegaly EXTREMITIES: 2+ pulses, warm, well-perfused, no edema. NEUROLOGICAL: Cranial nerves II through XII grossly intact. Normal speech, gait not observed. PSYCH: Normal mood, normal affect. SKIN: Warm, dry, normal turgor, no rashes or lesions noted Laboratory Results - last 24 hr 05/15/19 05/15/19 05/15/19 08:24 08:24 08:24 WBC 6.8 RBC 4.11 Hgb 13.5 Hct 39.9 MCV 97.2 H MCH 32.9 MCHC 33.9 RDW 13.8 Plt Count 171 D MPV 11.5 H Absolute Neuts (auto) 5.4 Neutrophils % 79.3 D Lymphocytes % 14.9 D Monocytes % 5.6 Eosinophils % 0.1 D Basophils % 0.1 Nucleated RBC % 0 PT with INR 13.80 H INR 1.17 H Sodium 142 Potassium 3.6 Chloride 107 Carbon Dioxide 28 Anion Gap 7 L BUN 3.2 L Creatinine 0.6 Est GFR (CKD-EPI)AfAm 107.79 Est GFR (CKD-EPI)NonAf 93.00 Random Glucose 98 Calcium 8.6 Total Bilirubin 5.9 H Direct Bilirubin 4.8 H AST 134 H ALT 112 H Alkaline Phosphatase 230 H C-Reactive Protein 2.3 H Total Protein 5.8 L Albumin 2.4 L Total Amylase 254 H Lipase 3505 H Active Medications Generic Name Dose Route Start Last Admin Trade Name Joshq PRN Reason Stop Dose Admin Lactated Ringer's 1,000 ml in 1,000 mls @ 125 mls/hr 05/15/19 07:30 05/15/19 11:44 Lactated Ringers Solution IV 125 mls/hr ASDIR CANDI Administration Piperacillin Sod/Tazobactam 100 mls @ 200 mls/hr 05/15/19 18:00 05/15/19 18: 29 Sod 4.5 gm/ Dextrose IVPB 200 mls/hr Q8H-IV CANDI Administration Protocol ASSESSMENT/PLAN: Patient is a 68 yo female with no significant PMH, presented to the ER for RUQ pain for the past 2 weeks. Reportedly had an "Echo" done in [facility] 2 weeks ago which showed a stones in gallbladder. Pain started radiating to her back before she came into the ER. Associated with nausea and loss of appetite, exacerbated by eating greasy food, no vomiting, fever, chills, diarrhea, chest pain, shortness of breath and headaches. ER course: (1) CT: suspected cholecystitis (2) Unasyn (3) R/L #RUQ - Unsuccessful ERCP, if Percutaneous Trans Cholangiography (PTC) attempted - CXR: Questionable atelectasis on the left - Cholecystectomy was initially scheduled for tomorrow, must clear blockage prior to surgery - ID consult: continue Zosyn - Total Bili 5.5 -> 5.9, Direct 4.8 #Transaminitis - [id number]->127 -> 134; [id number] ->98 -> 112; [id number]->228 -> 230 - continue to monitor #DVT ppx - SCD's - medication held for possible surgery #FEN - NPO - LR @ 125 #Dispo - Monitor on med surg Visit type - Emergency Visit Emergency Visit: Yes ED Registration Date: 05/14/19 Care time: The patient presented to the Emergency Department on the above date and was hospitalized for further evaluation of their emergent condition. - New Patient This patient is new to me today: No - Critical Care Critical Care patient: No - Discharge Referral Referred to [facility] Med P.C.: No ATTENDING PHYSICIAN STATEMENT I saw and evaluated the patient. I reviewed the resident's note and discussed the case with the resident. I agree with the resident's findings and plan as documented. SUBJECTIVE: OBJECTIVE: ASSESSMENT AND PLAN:
[2019-05-16] MEDS ORDERED: PIPERACILLIN/TAZOBACTAM 4.5 GM VIAL IVPB ONE ×3 (00:53→17:15)
[2019-05-16] MEDS ORDERED: DEXTROSE 5%-WATER 100 ML IVPB ONE ×3 (00:54→17:16)
[2019-05-16] MEDS: PIPERACILLIN/TAZOB 4.5 GM 4.5 GM in DEXTROSE 5%-WATER 100 ML IVPB SCH ×3 (01:02→17:38)
[2019-05-16] MEDS: LACTATED RINGERS SOLUTION 1,000 ML/1,000 ML INFUS.BAG IV SCH ×2 (01:04→10:03)
[2019-05-16 08:50] LABS: HEMATOCRIT 41.6 % (32.4-45.2); MCH 32.8 pg (25.7-33.7); MCHC 33.6 g/dl (32.0-36.0); MEAN CELL VOLUME 97.7 fl (80-96); MEAN PLT VOLUME 11.2 fl (7.5-11.1); PLATELET COUNT 169 K/MM3 (134-434); RBC 4.26 M/mm3 (3.60-5.2); RDW 13.9 % (11.6-15.6); WHITE BLOOD COUNT 7.3 K/mm3 (4.0-10.0)
[2019-05-16] MEDS ORDERED: morphine SULFATE 4 MG/ML VIAL IVPUSH SCH (09:15)
[2019-05-16] MEDS ORDERED: MORPHINE SULFATE 2 MG/ML VIAL IVPUSH SCH (09:19)
[2019-05-16 09:20] LABS: BLOOD UREA NITROGEN 4.1 mg/dL (7-18); CALCIUM 8.7 mg/dL (8.5-10.1); CREATININE 0.6 mg/dL (0.55-1.3); POTASSIUM 3.8 mmol/L (3.5-5.1)
[2019-05-16 09:24] LABS: ALBUMIN 2.5 g/dl (3.4-5.0); BILIRUBIN,DIRECT 2.1 mg/dL (0.0-0.2); BILIRUBIN,TOTAL 2.6 mg/dL (0.2-1)
[2019-05-16] MEDS: MORPHINE SULFATE 2 MG/ML VIAL IVPUSH PRN ×2 (13:26→20:58)
[2019-05-16 14:01] VITALS: TEMP 98.5
--- NOTE | 2019-05-16 16:41 | PN ---
Physical Exam: SUBJECTIVE: Patient seen and examined by the bedside, AOx3 OBJECTIVE: Vital Signs Period Temp Pulse Resp BP Sys/Whitaker Pulse Ox Last 24 Hr 97.4 F-98.5 F 54-74 18-19 131-157/70-86 100 GENERAL: The patient is awake, alert, and fully oriented, in no acute distress. HEAD: Normal with no signs of trauma. EYES: PERRL, extraocular movements intact, sclera anicteric, conjunctiva clear. No ptosis. ENT: Ears normal, nares patent, oropharynx clear without exudates, moist mucous membranes. NECK: Trachea midline, full range of motion, supple. LUNGS: Breath sounds equal, clear to auscultation bilaterally, no wheezes, no crackles, no accessory muscle use. HEART: Regular rate and rhythm, S1, S2 without murmur, rub or gallop. ABDOMEN: Soft, drain bag attached, LLQ and LUQ tenderness, no rebound tenderness , no hepatosplenomegaly EXTREMITIES: 2+ pulses, warm, well-perfused, no edema. NEUROLOGICAL: Cranial nerves II through XII grossly intact. Normal speech, gait not observed. PSYCH: Normal mood, normal affect. SKIN: Warm, dry, normal turgor, no rashes or lesions noted Laboratory Results - last 24 hr 05/14/19 05/14/19 05/16/19 13:18 13:18 07:36 WBC 7.3 RBC 4.26 Hgb 14.0 Hct 41.6 MCV 97.7 H MCH 32.8 MCHC 33.6 RDW 13.9 Plt Count 169 MPV 11.2 H Sodium Potassium Chloride Carbon Dioxide Anion Gap BUN Creatinine Est GFR (CKD-EPI)AfAm Est GFR (CKD-EPI)NonAf Random Glucose Calcium Total Bilirubin Direct Bilirubin AST ALT Alkaline Phosphatase Total Protein Albumin Hep A IgM Ab Confirm Negative Negative Hepatitis A Ab Total Positive H Hep Bs Antigen Negative Hep B Core IgM Ab Negative Hepatitis C Ab (EIA) <0.1 05/16/19 05/16/19 07:36 07:36 WBC RBC Hgb Hct MCV MCH MCHC RDW Plt Count MPV Sodium 144 Potassium 3.8 Chloride 105 Carbon Dioxide 31 Anion Gap 8 BUN 4.1 L Creatinine 0.6 Est GFR (CKD-EPI)AfAm 107.79 Est GFR (CKD-EPI)NonAf 93.00 Random Glucose 79 Calcium 8.7 Total Bilirubin 2.6 H D Direct Bilirubin 2.1 H AST 85 H ALT 100 H Alkaline Phosphatase 199 H Total Protein 6.0 L Albumin 2.5 L Hep A IgM Ab Confirm Hepatitis A Ab Total Hep Bs Antigen Hep B Core IgM Ab Hepatitis C Ab (EIA) Active Medications Generic Name Dose Route Start Last Admin Trade Name Freq PRN Reason Stop Dose Admin Lactated Ringer's 1,000 ml in 1,000 mls @ 125 mls/hr 05/15/19 07:30 05/16/19 10:03 Lactated Ringers Solution IV 125 mls/hr ASDIR CANDI Administration Piperacillin Sod/Tazobactam 100 mls @ 200 mls/hr 05/15/19 18:00 05/16/19 10: 05 Sod 4.5 gm/ Dextrose IVPB 200 mls/hr Q8H-IV CANDI Administration Protocol Morphine Sulfate 2 mg 05/16/19 12:30 05/16/19 13:26 Morphine Sulfate IVPUSH 2 mg Q4H PRN Administration PAIN LEVEL 6-10 ASSESSMENT/PLAN: Patient is a 68 yo female with no significant PMH, presented to the ER for RUQ pain for the past 2 weeks. Reportedly had an "Echo" done in [facility] 2 weeks ago which showed a stones in gallbladder. Pain started radiating to her back before she came into the ER. Associated with nausea and loss of appetite, exacerbated by eating greasy food, no vomiting, fever, chills, diarrhea, chest pain, shortness of breath and headaches. #Acute Choledocholithiasis - Unsuccessful ERCP,Percutaneous Trans Cholangiography (PTC) performed stent placed - Being transfered to [facility] today for tertiary care management - CXR: Questionable atelectasis on the left - ID consult: continue Zosyn - Total Bili 5.5 -> 5.9 -> 2.6, Direct 4.8 -> 2.1 #Transaminitis - [id number]->127 -> 134 -> 85; [id number] ->98 -> 112 -> 100; [id number]->228 -> 230 -> 199 , trending down - continue to monitor #DVT ppx - SCD's - medication held for possible surgery #FEN - NPO - LR @ 125 #Dispo - Transfer to [facility] Visit type - Emergency Visit Emergency Visit: Yes ED Registration Date: 05/14/19 Care time: The patient presented to the Emergency Department on the above date and was hospitalized for further evaluation of their emergent condition. - New Patient This patient is new to me today: No - Critical Care Critical Care patient: No - Discharge Referral Referred to [facility] Med P.C.: No ATTENDING PHYSICIAN STATEMENT I saw and evaluated the patient. I reviewed the resident's note and discussed the case with the resident. I agree with the resident's findings and plan as documented. SUBJECTIVE: OBJECTIVE: ASSESSMENT AND PLAN:
--- NOTE | 2019-05-16 17:53 | DS ---
Physical Exam: SUBJECTIVE: Patient seen and examined by the bedside, AOx3 OBJECTIVE: Vital Signs Period Temp Pulse Resp BP Sys/Whitaker Pulse Ox Last 24 Hr 97.4 F-98.5 F 54-74 18-18 131-148/70-86 100 PHYSICAL EXAM GENERAL: The patient is awake, alert, and fully oriented, in no acute distress. HEAD: Normal with no signs of trauma. EYES: PERRL, extraocular movements intact, sclera anicteric, conjunctiva clear. No ptosis. ENT: Ears normal, nares patent, oropharynx clear without exudates, moist mucous membranes. NECK: Trachea midline, full range of motion, supple. LUNGS: Breath sounds equal, clear to auscultation bilaterally, no wheezes, no crackles, no accessory muscle use. HEART: Regular rate and rhythm, S1, S2 without murmur, rub or gallop. ABDOMEN: Soft, drain bag attached, LLQ and LUQ tenderness, no rebound tenderness , no hepatosplenomegaly EXTREMITIES: 2+ pulses, warm, well-perfused, no edema. NEUROLOGICAL: Cranial nerves II through XII grossly intact. Normal speech, gait not observed. PSYCH: Normal mood, normal affect. SKIN: Warm, dry, normal turgor, no rashes or lesions noted LABS Laboratory Results - last 24 hr 05/14/19 05/14/19 05/16/19 13:18 13:18 07:36 WBC 7.3 RBC 4.26 Hgb 14.0 Hct 41.6 MCV 97.7 H MCH 32.8 MCHC 33.6 RDW 13.9 Plt Count 169 MPV 11.2 H Sodium Potassium Chloride Carbon Dioxide Anion Gap BUN Creatinine Est GFR (CKD-EPI)AfAm Est GFR (CKD-EPI)NonAf Random Glucose Calcium Total Bilirubin Direct Bilirubin AST ALT Alkaline Phosphatase Total Protein Albumin Hep A IgM Ab Confirm Negative Negative Hepatitis A Ab Total Positive H Hep Bs Antigen Negative Hep B Core IgM Ab Negative Hepatitis C Ab (EIA) <0.1 05/16/19 05/16/19 07:36 07:36 WBC RBC Hgb Hct MCV MCH MCHC RDW Plt Count MPV Sodium 144 Potassium 3.8 Chloride 105 Carbon Dioxide 31 Anion Gap 8 BUN 4.1 L Creatinine 0.6 Est GFR (CKD-EPI)AfAm 107.79 Est GFR (CKD-EPI)NonAf 93.00 Random Glucose 79 Calcium 8.7 Total Bilirubin 2.6 H D Direct Bilirubin 2.1 H AST 85 H ALT 100 H Alkaline Phosphatase 199 H Total Protein 6.0 L Albumin 2.5 L Hep A IgM Ab Confirm Hepatitis A Ab Total Hep Bs Antigen Hep B Core IgM Ab Hepatitis C Ab (EIA) HOSPITAL COURSE: Date of Admission:05/14/19 Patient is a 68 yo female with no significant PMH, presented to the ER for RUQ pain for the past 2 weeks. Associated with nausea and loss of appetite, exacerbated by eating greasy food, no vomiting, fever, chills, diarrhea, chest pain, shortness of breath and headaches. Date of Discharge: 05/16/[address] was done, which showed edema and questionable mild thickening of gall bladder. Ultrasound showed CBD dilatation measuring 10 mm on abdominal ultrasound. She was found to have elevated AST, ALT, and bilirubin. WBC was normal. She was given empiric IV Zosyn and pain was managed with Morphine 2gm. Pt was evaluated by GI and underwent ERCP/sphincterotomy with unsuccessful attempts to cannulate the common bile duct. Afterwards, a biliary drain was placed by IR. AST,ALT were downtrending. Per GI recommendation, pt is being transferred to the [facility] for higher level of care. Minutes to complete discharge: 36 Discharge Summary Reason For Visit: CHOLECYSTITIS Current Active Problems Abdominal pain (Acute) Cholecystitis (Acute) Dilation of biliary tract (Acute) Obstructive jaundice (Acute) Condition: Worsened - Instructions Diet, Activity, Other Instructions: 68F presented with RUQ abdominal pain found to have CBD dilatation measuring 10 mm on abdominal ultrasound. She was given empiric IV Zosyn. Pt was evaluated by GI and underwent ERCP/sphincterotomy with unsuccessful attempts to cannulate the common bile duct. Afterwards, a biliary drain was placed by IR. Per GI recommendation, pt is being transferred to the [facility] for higher level of care. Referrals: Leonid Sheehan MD [Staff Physician] - Juan Maynard DO [Staff Physician] - Sundar Brady MD [Staff Physician] - Disposition: TRANSFER ACUTE CARE/OTHER HOSP - Home Medications Comprehensive Discharge Medication List: Ambulatory Orders Dextrose 5%-Water [Dextrose 5% Water Minibag 100ML] 100 ml IVPB Q8H-IV #1 bag Morphine Sulfate 2 mg IVPUSH Q4H PRN #1 vial MDD 3 05/16/19 Piperacillin/Tazob 4.5 gm [Zosyn -] 4.5 gm IVPB Q8H-IV vial 05/16/19 This patient is new to me today: No Emergency Visit: Yes ED Registration Date: 05/14/19 Care time: The patient presented to the Emergency Department on the above date and was hospitalized for further evaluation of their emergent condition. Critical Care patient: No - Discharge Referral Referred to [facility] Med P.C.: No ATTENDING PHYSICIAN STATEMENT I saw and evaluated the patient. I reviewed the resident's note and discussed the case with the resident. I agree with the resident's findings and plan as documented. SUBJECTIVE: OBJECTIVE: ASSESSMENT AND PLAN:
[2019-05-16 17:59] VITALS: BP 139/85; PULSE 76
--- NOTE | 2019-05-16 19:03 | PN.GI ---
GI Progress Note Subjective: Commissioning Specialist utilized. Patient seen this afternoon. Abdominal pain improved from this morning - Objective Vital Signs: Vital Signs Temperature 98.5 F 05/16/19 17:59 Pulse Rate 76 05/16/19 17:59 Respiratory Rate 18 05/16/19 17:59 Blood Pressure 139/85 05/16/19 17:59 O2 Sat by Pulse Oximetry (%) 100 05/15/19 21:00 Constitutional: Calm Eyes: Yes: Sclera Icterus Cardiovascular: Yes: Regular Rate and Rhythm. No: Murmur Respiratory: Yes: CTA Bilaterally Gastrointestinal Inspection: No: Distention ...Auscultate: Yes: Normoactive Bowel Sounds ...Palpate: Yes: Tenderness (Mild TTP epigastrium / RUQ) ...Percussion: No: Tympanitic Edema: No (No LE edema) Neurological: Yes: Alert Labs: CBC, BMP 05/16/19 07:36 05/16/19 07:36 INR, PTT INR 1.17 (0.83-1.09) H 05/15/19 08:24 Hepatic Panel Total Bilirubin 2.6 mg/dL (0.2-1) H D 05/16/19 07:36 Direct Bilirubin 2.1 mg/dL (0.0-0.2) H 05/16/19 07:36 AST 85 U/L (15-37) H 05/16/19 07:36 ALT 100 U/L (13-61) H 05/16/19 07:36 Alkaline Phosphatase 199 U/L (45-117) H 05/16/19 07:36 Albumin 2.5 g/dl (3.4-5.0) L 05/16/19 07:36 Problem List - Problems (1) Obstructive jaundice Assessment/Plan: Per Dr. Brady, he spoke to Dr. Covington after PTC performed. Concern during fluoroscopy was that there was a [place] tumor and that further evaluation was necessary at [facility]. I explained to Ms. Gutierres the possibility of a tumor causing her current problems. She stated that she understood and is amenable to her transfer to [facility]. I spoke to Dr. Leal and arranged transfer earlier today. Continue IV Abx Code(s): K83.1 - OBSTRUCTION OF BILE DUCT
--- NOTE | 2019-05-16 19:49 | PN ---
Teaching Attending Note Name of Resident: Keegan Alexis ATTENDING PHYSICIAN STATEMENT I saw and evaluated the patient. I reviewed the resident's note and discussed the case with the resident. I agree with the resident's findings and plan as documented. SUBJECTIVE: Patient c/o having severe right sided back pain. OBJECTIVE: Vital Signs Temperature 98.5 F 05/16/19 17:59 Pulse Rate 76 05/16/19 17:59 Respiratory Rate 18 05/16/19 17:59 Blood Pressure 139/85 05/16/19 17:59 O2 Sat by Pulse Oximetry (%) 100 05/15/19 21:00 GENERAL: The patient is awake, alert, and fully oriented, in no acute distress. HEAD: Normal with no signs of trauma. EYES: PERRL, extraocular movements intact, sclera anicteric, conjunctiva clear. No ptosis. ENT: Ears normal, nares patent, oropharynx clear without exudates, moist mucous membranes. NECK: Trachea midline, full range of motion, supple. LUNGS: Breath sounds equal, clear to auscultation bilaterally, no wheezes, no crackles, no accessory muscle use. HEART: Regular rate and rhythm, S1, S2 without murmur, rub or gallop. ABDOMEN: Soft, diffuse RUQ pain ,with back pain, s/p PTC , draining well, positive for voluntary guarding, no rebound, no hepatosplenomegaly, no masses. EXTREMITIES: 2+ pulses, warm, well-perfused, no edema. NEUROLOGICAL: Cranial nerves II through XII grossly intact. Normal speech, gait not observed. PSYCH: Normal mood, normal affect. SKIN: Warm, dry, normal turgor, no rashes or lesions CBCD WBC 7.3 K/mm3 (4.0-10.0) 05/16/19 07:36 RBC 4.26 M/mm3 (3.60-5.2) 05/16/19 07:36 Hgb 14.0 GM/dL (10.7-15.3) 05/16/19 07:36 Hct 41.6 % (32.4-45.2) 05/16/19 07:36 MCV 97.7 fl (80-96) H 05/16/19 07:36 MCHC 33.6 g/dl (32.0-36.0) 05/16/19 07:36 RDW 13.9 % (11.6-15.6) 05/16/19 07:36 Plt Count 169 K/MM3 (134-434) 05/16/19 07:36 MPV 11.2 fl (7.5-11.1) H 05/16/19 07:36 CMP Sodium 144 mmol/L (136-145) 05/16/19 07:36 Potassium 3.8 mmol/L (3.5-5.1) 05/16/19 07:36 Chloride 105 mmol/L (98-107) 05/16/19 07:36 Carbon Dioxide 31 mmol/L (21-32) 05/16/19 07:36 Anion Gap 8 MMOL/L (8-16) 05/16/19 07:36 BUN 4.1 mg/dL (7-18) L 05/16/19 07:36 Creatinine 0.6 mg/dL (0.55-1.3) 05/16/19 07:36 Random Glucose 79 mg/dL (74-106) 05/16/19 07:36 Calcium 8.7 mg/dL (8.5-10.1) 05/16/19 07:36 Total Bilirubin 2.6 mg/dL (0.2-1) H D 05/16/19 07:36 AST 85 U/L (15-37) H 05/16/19 07:36 ALT 100 U/L (13-61) H 05/16/19 07:36 Alkaline Phosphatase 199 U/L (45-117) H 05/16/19 07:36 Total Protein 6.0 g/dl (6.4-8.2) L 05/16/19 07:36 Albumin 2.5 g/dl (3.4-5.0) L 05/16/19 07:36 CARDIAC ENZYMES Creatine Kinase 189 U/L (26-192) 05/14/19 01:15 Troponin I < 0.02 ng/ml (0.00-0.05) 05/14/19 01:15 Current Medications Generic Name Dose Route Start Last Admin Trade Name Freq PRN Reason Stop Dose Admin Lactated Ringer's 1,000 ml in 1,000 mls @ 125 mls/hr 05/15/19 07:30 05/16/19 10:03 Lactated Ringers Solution IV 125 mls/hr ASDIR CANDI Administration Piperacillin Sod/Tazobactam 100 mls @ 200 mls/hr 05/15/19 18:00 05/16/19 17: 38 Sod 4.5 gm/ Dextrose IVPB 200 mls/hr Q8H-IV CANDI Administration Protocol Morphine Sulfate 2 mg 05/16/19 12:30 05/16/19 13:26 Morphine Sulfate IVPUSH 2 mg Q4H PRN Administration PAIN LEVEL 6-10 Home Medications Medication Instructions Recorded Dextrose 5%-Water [Dextrose 5% 100 ml IVPB Q8H-IV #1 bag 05/16/19 Water Minibag 100ML] Morphine Sulfate 2 mg IVPUSH Q4H PRN #1 vial MDD 3 05/16/19 Piperacillin/Tazob 4.5 gm [Zosyn -] 4.5 gm IVPB Q8H-IV vial 05/16/19 ASSESSMENT AND PLAN: Patient is a 68 yo female with no significant PMH, presented to the ER for RUQ pain x 2 weeks. and was found to have Acute Choledocholithiasis . #Acute choldecholithiasis ; s/p ERCP unsuccessful ,s/p (Percutaneous Trans Cholangiography (PTC) with stent By TOM landis, will Tx the patient to [facility] on the case, on IV zosyn and morphine pain meds. # Acute Transaminitis: continue to monitor #DVT ppx: SCD's
== END 2019-05-16 21:22 | disposition short-term general hospital (02) | DRG 445 ==
LOC: JER 20:57 → JERBED 05-14 04:48 → J6S 05-14 11:06
PROVIDERS: ADMIT Internal Medicine; ATTEND Internal Medicine
PROC: BF100ZZ Fluoroscopy of Bile Ducts using High Osmolar Contrast (ICD-10-PCS; 2019-05-14)
PROC: 0F778ZZ Dilation of Common Hepatic Duct, Via Natural or Artificial Opening Endoscopic (ICD-10-PCS; principal; 2019-05-14 14:45)
DX: K80.01 Calculus of gallbladder with acute cholecystitis with obstruction (principal); J98.11 Atelectasis; Z86.19 Personal history of other infectious and parasitic diseases; E16.2 Hypoglycemia, unspecified; R82.2 Biliuria; D75.89 Other specified diseases of blood and blood-forming organs; E88.09 Other disorders of plasma-protein metabolism, not elsewhere classified; K83.8 Other specified diseases of biliary tract
CPT/HCPCS: 36415; 47532; 71045-TC-FY; 74019-TC-FY; 74176-TC; 76000-TC-FY; 76705-TC; 80048; 80053; 80074; 80076; 81003; 82150; 82248; 82550; 82553; 82607; 82746; 83540; 83550; 83615; 83690; 84484; 85025; 85027; 85610; 85651; 86140; 86708; 86850; 86900; 86901; 87040; 87086; 93005; 93010; 94760; 99285-25; A4358; C1729; C1769; Q0162